=== PATIENT | female | born 1935 | race Caucasian/White ===

== ENCOUNTER 2017-08-17 17:22 | Emergency (ER) | payer MEDICARE, MEDICAID ==
[~2017-08-17] VITALS: Ht 5451.6 cm; Wt 67.7 kg
[2017-08-17 17:25] VITALS: BP 151/103
== END 2017-08-17 20:32 | disposition home or self-care (01) ==
LOC: ER 17:23
DX: S40.011A Contusion of right shoulder, initial encounter (principal); S80.02XA Contusion of left knee, initial encounter; S80.01XA Contusion of right knee, initial encounter; S50.02XA Contusion of left elbow, initial encounter; S50.01XA Contusion of right elbow, initial encounter; S00.83XA Contusion of other part of head, initial encounter; Z88.5 Allergy status to narcotic agent; W01.0XXA Fall on same level from slipping, tripping and stumbling without subsequent striking against object, initial encounter; Y93.89 Activity, other specified; Y92.89 Other specified places as the place of occurrence of the external cause; Y99.8 Other external cause status
CPT/HCPCS: 70450; 70486; 73030; 99284; A4565

== ENCOUNTER 2021-02-04 15:42 | Emergency (ER) | payer MEDICARE, MEDICAID ==
[~2021-02-04] VITALS: Ht 167.6 cm; Wt 90.0 kg
[2021-02-04 17:30] LABS: BASOPHILS % (AUTO) 0.5 % (0-1); EOSINOPHILS # (AUTO) 0.3 X10'3 (0-0.9); EOSINOPHILS % (AUTO) 3.2 % (0-6); HEMATOCRIT 44.3 % (35.0-45.0); HEMOGLOBIN 15.2 g/dl (12.0-16.0); LYMPHOCYTES % (AUTO) 24.5 % (21-51); MEAN CORPUSCULAR HEMOGLOBIN 31.8 PG (27.0-31.0); MEAN CORPUSCULAR HGB CONC 34.4 g/dL (33.0-36.5); MEAN CORPUSCULAR VOLUME 92.5 FL (78-98); MEAN PLATELET VOLUME 9.2 FL (7.4-10.4); MONOCYTES # (AUTO) 0.6 X10'3 (0-0.9); MONOCYTES % (AUTO) 6.9 % (2-12); NEUTROPHILS # (AUTO) 5.4 X10'3 (1.8-7.7); NEUTROPHILS % (AUTO) 64.9 % (42-75); PLATELET COUNT 234 X10'3 (140-440); RED BLOOD COUNT 4.79 X10'6 (4.20-5.60); RED CELL DISTRIBUTION WIDTH 13.7 % (11.5-14.5); WHITE BLOOD COUNT 8.4 X10'3 (4.5-11.0)
[2021-02-04 17:37] LABS: ALANINE AMINOTRANSFERASE 33 U/L (12-78); ALBUMIN 3.9 G/DL (3.4-5.0); ALBUMIN/GLOBULIN RATIO 1.2 (1.1-1.5); ALKALINE PHOSPHATASE 60 IU/L (46-116); ANION GAP 9 (8-16); ASPARTATE AMINO TRANSFERASE 30 U/L (10-37); BILIRUBIN,TOTAL 0.5 MG/DL (0.1-1.0); BLOOD UREA NITROGEN 19 MG/DL (7-18); BUN/CREATININE RATIO 17.3 (6.6-38.0); CALCIUM 8.8 MG/DL (8.5-10.1); CHLORIDE 109 MMOL/L (99-107); GLUCOSE 104 MG/DL (70-104); SODIUM 144 MMOL/L (135-145); TOTAL CARBON DIOXIDE 26.4 MMOL/L (24-32); TOTAL PROTEIN 7.1 G/DL (6.4-8.2); eGFR 47 ML/MIN
[2021-02-04] MEDS ORDERED: normal saline 1000ML IV soln IVB ONE (19:20)
--- NOTE | 2021-02-04 20:16 | NUR ---
PT WAS ROOMED AND ASSESSED BY ME. SHE NOTES THAT SHE DID NOT TAKE HER BP MEDS TODAY, CHRONIC SHOULDER PAIN THAT MAKES TAKING BP DIFFICULT (BETTER ON THE FOREARM), AND THAT SHE FEELS ANXIOUS WHEN AT THE HOSPITAL SHE DOES COMPLAIN OF DIZZINESS
[2021-02-04 20:48] VITALS: BP 173/106
== END 2021-02-04 20:57 | disposition home or self-care (01) ==
LOC: ER 15:42
DX: I10 Essential (primary) hypertension (principal); R42 Dizziness and giddiness; R51.9 Headache, unspecified; H53.8 Other visual disturbances; R53.83 Other fatigue; R07.89 Other chest pain; R06.02 Shortness of breath; R21 Rash and other nonspecific skin eruption; E03.9 Hypothyroidism, unspecified; Z88.8 Allergy status to other drugs, medicaments and biological substances; Z91.041 Radiographic dye allergy status
CPT/HCPCS: 36415; 70450; 71045; 80053; 83880; 84484; 85025; 93005; 99285

== ENCOUNTER 2021-03-12 11:09 | Emergency (ER) | payer MEDICARE, MEDICAID ==
[~2021-03-12] VITALS: Ht 167.6 cm; Wt 90.9 kg
[2021-03-12 11:32] VITALS: BP 149/71
[2021-03-12] MEDS ORDERED: CEPH-585 PO (11:38)
[2021-03-12] MEDS ORDERED: SULF1TAB49 PO (11:38)
== END 2021-03-12 12:03 | disposition home or self-care (01) ==
LOC: ER 11:10
DX: L03.311 Cellulitis of abdominal wall (principal); R10.84 Generalized abdominal pain; E03.9 Hypothyroidism, unspecified; Z88.5 Allergy status to narcotic agent; Z88.8 Allergy status to other drugs, medicaments and biological substances; Z79.2 Long term (current) use of antibiotics
CPT/HCPCS: 99283

== ENCOUNTER 2022-06-23 17:30 | Outpatient (CLI) | payer BC, MEDICARE ==
[~2022-06-23 17:30] MED LIST: BIMA2.5D LEFTEYE; BRIN10DR6 LEFTEYE; HYDR12.55 PO; LACT1CAP26 PO; LEVO75TA7 PO; OMEP20CA16 PO; VALS80TA32 PO
[2022-06-23 18:10] LABS: BASOPHILS # (AUTO) 0.1 X10'3 (0-0.2); BASOPHILS % (AUTO) 0.6 % (0-1); EOSINOPHILS # (AUTO) 0.4 X10'3 (0-0.9); EOSINOPHILS % (AUTO) 4.3 % (0-6); HEMATOCRIT 47.2 % (35.0-45.0); HEMOGLOBIN 16.2 g/dl (12.0-16.0); LYMPHOCYTES # (AUTO) 1.7 X10'3 (1.1-4.8); LYMPHOCYTES % (AUTO) 19.8 % (21-51); MEAN CORPUSCULAR HEMOGLOBIN 30.7 PG (27.0-31.0); MEAN CORPUSCULAR HGB CONC 34.2 g/dL (33.0-36.5); MEAN CORPUSCULAR VOLUME 89.7 FL (78-98); MEAN PLATELET VOLUME 9.9 FL (7.4-10.4); MONOCYTES # (AUTO) 0.6 X10'3 (0-0.9); MONOCYTES % (AUTO) 7.5 % (2-12); NEUTROPHILS # (AUTO) 5.8 X10'3 (1.8-7.7); NEUTROPHILS % (AUTO) 67.8 % (42-75); PLATELET COUNT 230 X10'3 (140-440); RED BLOOD COUNT 5.27 X10'6 (4.20-5.60); RED CELL DISTRIBUTION WIDTH 13.4 % (11.5-14.5); WHITE BLOOD COUNT 8.6 X10'3 (4.5-11.0)
[2022-06-23 18:16] LABS: ANION GAP 11 (8-16); BLOOD UREA NITROGEN 10 MG/DL (7-18); BUN/CREATININE RATIO 10.1 (6.6-38.0); CALCIUM 9.9 MG/DL (8.5-10.1); CHLORIDE 107 MMOL/L (99-107); CREATININE 0.99 MG/DL (0.40-0.90); GLUCOSE 102 MG/DL (70-104); POTASSIUM 3.2 MMOL/L (3.5-5.1); SODIUM 144 MMOL/L (135-145); TOTAL CARBON DIOXIDE 26.2 MMOL/L (24-32); eGFR 53 ML/MIN
== END 2022-06-23 23:59 | disposition home or self-care (01) ==
LOC: LAB SPEC 17:30
DX: F03.B0 Unspecified dementia, moderate, without behavioral disturbance, psychotic disturbance, mood disturbance, and anxiety (principal)
CPT/HCPCS: 36415; 80048; 85025

== ENCOUNTER 2022-07-12 12:19 | Inpatient (IN) | payer BC, MEDICAID ==
[~2022-07-12] VITALS: Ht 167.6 cm; Wt 79.1 kg
[2022-07-12] MEDS ORDERED: normal saline 1000ML IV soln IVB ONE (13:50)
[2022-07-12 14:10] LABS: BASOPHILS % (AUTO) 0.4 % (0-1); EOSINOPHILS # (AUTO) 0.1 X10'3 (0-0.9); EOSINOPHILS % (AUTO) 1.6 % (0-6); HEMATOCRIT 44.7 % (35.0-45.0); LYMPHOCYTES % (AUTO) 10.9 % (21-51); MEAN CORPUSCULAR HGB CONC 33.6 g/dL (33.0-36.5); MEAN CORPUSCULAR VOLUME 89.5 FL (78-98); MEAN PLATELET VOLUME 9.1 FL (7.4-10.4); MONOCYTES # (AUTO) 0.9 X10'3 (0-0.9); MONOCYTES % (AUTO) 9.8 % (2-12); NEUTROPHILS # (AUTO) 7.1 X10'3 (1.8-7.7); NEUTROPHILS % (AUTO) 77.3 % (42-75); PLATELET COUNT 193 X10'3 (140-440); RED CELL DISTRIBUTION WIDTH 14.5 % (11.5-14.5); WHITE BLOOD COUNT 9.2 X10'3 (4.5-11.0)
[2022-07-12 14:42] LABS: ALANINE AMINOTRANSFERASE 22 U/L (12-78); ALBUMIN 3.3 G/DL (3.4-5.0); ALBUMIN/GLOBULIN RATIO 1.1 (1.1-1.5); ALKALINE PHOSPHATASE 60 IU/L (46-116); ANION GAP 8 (8-16); ASPARTATE AMINO TRANSFERASE 23 U/L (10-37); BILIRUBIN,TOTAL 1.3 MG/DL (0.1-1.0); BLOOD UREA NITROGEN 9 MG/DL (7-18); BUN/CREATININE RATIO 12.5 (10.0-20.0); CALCIUM 9.3 MG/DL (8.5-10.1); CHLORIDE 108 MMOL/L (99-107); CREATININE 0.72 MG/DL (0.40-0.90); GLUCOSE 119 MG/DL (70-104); SODIUM 144 MMOL/L (135-145); TOTAL CARBON DIOXIDE 28.3 MMOL/L (24-32); TOTAL PROTEIN 6.3 G/DL (6.4-8.2); eGFR 77 ML/MIN
[2022-07-12 14:43] LABS: POTASSIUM 2.9 MMOL/L (3.5-5.1)
--- NOTE | 2022-07-12 14:53 | NUR ---
T/C from lab to inform us that pt has critical lab of 2.9 K+. Notified Dr. Gaviria @ [phone].
[2022-07-12] MEDS ORDERED: potassium Cl 20 mEq SR tablet PO ONE (15:05)
[2022-07-12 16:16] LABS: CLARITY,URINE SLIGHTLY CLOUDY (Clear); COLOR,URINE YELLOW (Yellow); GLUCOSE, URINE NEGATIVE (Neg); KETONES,URINE 15 mg/dl (Neg); LEUKOCYTE ESTERASE ,URINE NEGATIVE (Neg); NITRITES, URINE NEGATIVE (Neg); OCCULT BLOOD,URINE NEGATIVE (Neg); PH,URINE 6.5 (4.8-8.0); PROTEIN,URINE NEGATIVE (Neg); UROBILINOGEN,URINE 0.2 E.U/dL (0.2-1.0)
[2022-07-12 16:19] LABS: UA COLLECTION TYPE STRAIGHT CATH
[2022-07-12 16:23] LABS: RBC,URINE NONE SEEN /HPF (0-2); WBC,URINE 0-4 /HPF (0-4)
[2022-07-12 16:24] LABS: BACTERIA,URINE FEW /HPF (Neg); MUCUS STRANDS MODERATE /LPF (Neg); SQUAMOUS EPITHELIAL CELL,UR FEW /LPF (FEW)
[2022-07-12] MEDS ORDERED: POTA-192 PO (16:31)
[2022-07-12] MEDS ORDERED: normal saline 1000ml 1,000 ML IV ONE (17:20)
[2022-07-12] MEDS ORDERED: LORazepam 1 MG tablet PO ONE (17:20)
--- NOTE | 2022-07-12 17:56 | NUR ---
T/C from [facility] for an update. Let her know that PHILIPPE Iyer is planning to admit her.
[2022-07-12] MEDS ORDERED: potassium Cl 40MEQ/1/2NS 520ml 520 ML IV ONE (18:25)
[2022-07-12 19:34] LABS: CREATINE KINASE 206 U/L (26-192)
[2022-07-12] MEDS ORDERED: magnesium Cl slow-release 64mg tablet PO PRN (19:35)
[2022-07-12] MEDS ORDERED: ondansetron/PF 4mg/2ml inj IV PRN (19:35)
[2022-07-12] MEDS ORDERED: magnesium 4gm in 100ml NS 100 ML IV PRN (19:35)
[2022-07-12] MEDS ORDERED: acetaminophen 325mg tablet PO PRN (19:35)
[2022-07-12] MEDS ORDERED: PERFLUTREN PROTEIN-A MICROSPHR (Optison) 0.22 MG/ML 3ML VIAL IV ONE (19:35)
[2022-07-12] MEDS ORDERED: potassium Cl 40MEQ/1/2NS 520ml 520 ML IV PRN (19:35)
[2022-07-12] MEDS ORDERED: potassium Cl 20 mEq SR tablet PO PRN ×2 (19:35)
[2022-07-12] MEDS ORDERED: mag hydrox/Alum hydrox/simeth 30ml oral suspension PO PRN (19:35)
[2022-07-12] MEDS: K and/or MAG REPLACEMENT MC SCH (20:00)
--- NOTE | 2022-07-12 20:20 | NUR ---
PATIENT KEPT PULLING OUT IV'S CALLED THE HOSPITALIST DR. ESCOBAR VERBALIZED OVER PHONE TO DISCHARGE PATIENTS IV AND TO FEED PATIENT BY MOUTH
[2022-07-12] MEDS: prazosin 1mg capsule PO SCH (20:35)
[2022-07-12] MEDS: docusate sod 100mg capsule PO SCH (20:35)
[2022-07-12] MEDS: heparin, porcine 5000 units/ml vial SQ SCH (20:35)
--- NOTE | 2022-07-12 21:43 | NUR ---
PATIENT PLACED ON HOSPITAL BED VERY DIFFICULT TO RE DIRECT PATIENT DUE TO HALLUCINATIONS
[2022-07-13] VITALS (9 sets, daily range): BP systolic 117–191; BP diastolic 59–84
--- NOTE | 2022-07-13 00:30 | NUR ---
Patient in room CICU 2016. I have received report from CORN PICKER and had the opportunity to ask questions and assume patient care.
[2022-07-13 04:21] LABS: BASOPHILS % (AUTO) 0.3 % (0-1); HEMOGLOBIN 15.2 g/dl (12.0-16.0); RED CELL DISTRIBUTION WIDTH 14.6 % (11.5-14.5)
[2022-07-13 05:07] LABS: ALANINE AMINOTRANSFERASE 24 U/L (12-78); ALBUMIN 3.4 G/DL (3.4-5.0); ALBUMIN/GLOBULIN RATIO 1.2 (1.1-1.5); ALKALINE PHOSPHATASE 60 IU/L (46-116); ANION GAP 10 (8-16); ASPARTATE AMINO TRANSFERASE 35 U/L (10-37); BILIRUBIN,TOTAL 1.3 MG/DL (0.1-1.0); CALCIUM 9.8 MG/DL (8.5-10.1); CHLORIDE 112 MMOL/L (99-107); CREATININE 0.73 MG/DL (0.40-0.90); GLUCOSE 106 MG/DL (70-104); POTASSIUM 4.3 MMOL/L (3.5-5.1); SODIUM 145 MMOL/L (135-145); TOTAL CARBON DIOXIDE 23.3 MMOL/L (24-32); TOTAL PROTEIN 6.3 G/DL (6.4-8.2); eGFR 76 ML/MIN
[2022-07-13 05:08] LABS: BLOOD UREA NITROGEN 11 MG/DL (7-18); BUN/CREATININE RATIO 15.1 (10.0-20.0)
[2022-07-13 05:34] LABS: WHITE BLOOD COUNT 9.1 X10'3 (4.5-11.0)
[2022-07-13 05:35] LABS: HEMATOCRIT 45.1 % (35.0-45.0); MEAN CORPUSCULAR HEMOGLOBIN 30.6 PG (27.0-31.0); MEAN CORPUSCULAR VOLUME 90.7 FL (78-98); RED BLOOD COUNT 4.97 X10'6 (4.20-5.60)
[2022-07-13 05:36] LABS: LYMPHOCYTES % (AUTO) 20.9 % (21-51); MEAN CORPUSCULAR HGB CONC 33.7 g/dL (33.0-36.5); MEAN PLATELET VOLUME 9.3 FL (7.4-10.4); PLATELET COUNT 156 X10'3 (140-440)
[2022-07-13 05:37] LABS: EOSINOPHILS % (AUTO) 2.8 % (0-6); LYMPHOCYTES # (AUTO) 1.9 X10'3 (1.1-4.8); MONOCYTES % (AUTO) 9.7 % (2-12); NEUTROPHILS # (AUTO) 6.1 X10'3 (1.8-7.7)
[2022-07-13 05:38] LABS: EOSINOPHILS # (AUTO) 0.3 X10'3 (0-0.9); MONOCYTES # (AUTO) 0.9 X10'3 (0-0.9)
[2022-07-13 05:41] LABS: NEUTROPHILS % (AUTO) 66.3 % (42-75)
--- NOTE | 2022-07-13 06:27 | NUR ---
Problems reprioritized. Patient report given, questions answered & plan of care reviewed with Felicity TINSLEY.
--- NOTE | 2022-07-13 06:30 | NUR ---
Patient in room CICU 2016. I have received report from ALVINA Parr and had the opportunity to ask questions and assume patient care.
[2022-07-13] MEDS: K and/or MAG REPLACEMENT MC SCH ×2 (08:00→20:00)
[2022-07-13] MEDS: docusate sod 100mg capsule PO SCH ×2 (08:24→20:00)
[2022-07-13] MEDS: losartan 50mg tablet PO SCH (08:25)
[2022-07-13] MEDS: heparin, porcine 5000 units/ml vial SQ SCH ×2 (08:25→20:00)
[2022-07-13] MEDS: prazosin 1mg capsule PO SCH ×2 (10:26→20:00)
[2022-07-13] MEDS ORDERED: cloNIDine 0.1 mg tablet PO PRN (11:55)
[2022-07-13] MEDS ORDERED: hydrALAZINE 20mg/ml inj. IV PRN (11:55)
--- NOTE | 2022-07-13 12:00 | NUR ---
Dr Fleming notified of BP 179/84. Orders received.
[2022-07-13] MEDS: amLODIPine 5mg tablet PO SCH (12:19)
--- NOTE | 2022-07-13 18:30 | NUR ---
Problems reprioritized. Patient report given, questions answered & plan of care reviewed with ALVINA Barton.
[2022-07-14] VITALS: BP 135/62
[2022-07-14 01:53] LABS: BASOPHILS # (AUTO) 0.1 X10'3 (0-0.2); BASOPHILS % (AUTO) 0.8 % (0-1); EOSINOPHILS # (AUTO) 0.4 X10'3 (0-0.9); EOSINOPHILS % (AUTO) 5.7 % (0-6); HEMATOCRIT 39.5 % (35.0-45.0); HEMOGLOBIN 13.5 g/dl (12.0-16.0); LYMPHOCYTES # (AUTO) 1.7 X10'3 (1.1-4.8); LYMPHOCYTES % (AUTO) 23.5 % (21-51); MEAN CORPUSCULAR HEMOGLOBIN 30.8 PG (27.0-31.0); MEAN CORPUSCULAR HGB CONC 34.3 g/dL (33.0-36.5); MEAN CORPUSCULAR VOLUME 89.9 FL (78-98); MEAN PLATELET VOLUME 9.5 FL (7.4-10.4); MONOCYTES # (AUTO) 0.6 X10'3 (0-0.9); MONOCYTES % (AUTO) 8.6 % (2-12); NEUTROPHILS # (AUTO) 4.5 X10'3 (1.8-7.7); NEUTROPHILS % (AUTO) 61.4 % (42-75); PLATELET COUNT 158 X10'3 (140-440); RED BLOOD COUNT 4.39 X10'6 (4.20-5.60); RED CELL DISTRIBUTION WIDTH 14.5 % (11.5-14.5); WHITE BLOOD COUNT 7.4 X10'3 (4.5-11.0)
[2022-07-14 02:06] LABS: ALANINE AMINOTRANSFERASE 20 U/L (12-78); ALBUMIN 2.8 G/DL (3.4-5.0); ALKALINE PHOSPHATASE 51 IU/L (46-116); ANION GAP 8 (8-16); ASPARTATE AMINO TRANSFERASE 28 U/L (10-37); BLOOD UREA NITROGEN 11 MG/DL (7-18); BUN/CREATININE RATIO 15.7 (10.0-20.0); CALCIUM 9.1 MG/DL (8.5-10.1); CHLORIDE 109 MMOL/L (99-107); GLUCOSE 99 MG/DL (70-104); MAGNESIUM 1.9 MG/DL (1.5-2.4); POTASSIUM 3.5 MMOL/L (3.5-5.1); SODIUM 141 MMOL/L (135-145); TOTAL CARBON DIOXIDE 24.5 MMOL/L (24-32); TOTAL PROTEIN 5.5 G/DL (6.4-8.2); eGFR 79 ML/MIN
[2022-07-14 04:00] VITALS: BP 167/87
--- NOTE | 2022-07-14 06:25 | NUR ---
Report called to receiving nurse for room 3024Q. Transferred via bed. Special Issues communicated to receiving nurse.
[2022-07-14 07:00] VITALS: BP 161/82
--- NOTE | 2022-07-14 07:14 | NUR ---
Pt transferred to room 3024B with all belongings, at 0700.
--- NOTE | 2022-07-14 07:15 | NUR ---
Pt arrived on unit 07. Patient in room PCU 3024. I have received report from Miguel TINSLEY and had the opportunity to ask questions and assume patient care. Pt asleep but arouseable to voice. Pt denies pain. Pt oriented to name. Pt slightly agitated with being in hospital asb asking to go home and stating to nurse " are you almost done." Reoriented patient and patient redirectable. Addendum: 07/14/22 at 1226 by James Groves LVN Amended: Links added.
[2022-07-14] MEDS ORDERED: losartan 50mg tablet PO SCH (08:00)
[2022-07-14] MEDS: K and/or MAG REPLACEMENT MC SCH ×2 (08:00→20:00)
[2022-07-14] MEDS: heparin, porcine 5000 units/ml vial SQ SCH ×2 (08:00→19:52)
[2022-07-14] MEDS: docusate sod 100mg capsule PO SCH ×2 (08:22→19:52)
[2022-07-14] MEDS: prazosin 1mg capsule PO SCH ×2 (08:22→19:58)
[2022-07-14] MEDS: levoTHYROXINE 75mcg tablet PO SCH (08:22)
[2022-07-14] MEDS: losartan 50mg tablet PO SCH (08:23)
[2022-07-14] MEDS: amLODIPine 5mg tablet PO SCH (08:23)
[2022-07-14] MEDS: pantoprazole 40mg Tablet.DR PO SCH (08:23)
[2022-07-14 11:00] VITALS: BP 154/80
[2022-07-14 15:00] VITALS: BP 176/82
--- NOTE | 2022-07-14 17:18 | NUR ---
Pt becoming agitated with information writer during vital signs. Unable to safely obtain sitting/standing v/s. Pt is a fall risk due to hx of fall risk including this admission admitting dx fall. Addendum: 07/14/22 at 1719 by James Groves LVN Amended: Links added.
--- NOTE | 2022-07-14 17:24 | NUR ---
OPTOMECHANICAL ENGINEER documentation: I have reviewed and agree with all interventions, assessments performed and documented by POORNIMA PARKER LVN.
[2022-07-14 20:00] VITALS: BP 157/77
--- NOTE | 2022-07-14 20:00 | NUR ---
Pt resistive to V/S Addendum: 07/14/22 at 2233 by James Groves LVN Amended: Links added.
--- NOTE | 2022-07-14 20:54 | NUR ---
Paged Page Sent PAGER ID: [phone] MESSAGE: [id number]- Kalli. Requesting medication for insomnia. James Groves LVN
--- NOTE | 2022-07-14 22:19 | NUR ---
Attempted to do physical assessment and patient pushed me away and would not allow me to assess her at all. I am unable to agree or disagree with James STREETER's assessment.
--- NOTE | 2022-07-14 22:32 | NUR ---
Pt resistive to care. Pt refuses complete orthostatic v/s Addendum: 07/14/22 at 2232 by James Groves LVN Amended: Links added.
--- NOTE | 2022-07-14 22:37 | NUR ---
Pt refused lung assessment. No audible adventitious breath sounds. Addendum: 07/14/22 at 2239 by James Groves LVN Amended: Links added.
--- NOTE | 2022-07-14 22:54 | NUR ---
Pt refused V/S Addendum: 07/14/22 at 2254 by James Groves LVN Amended: Links added.
[2022-07-15] VITALS (8 sets, daily range): BP systolic 116–158; BP diastolic 53–99
--- NOTE | 2022-07-15 06:37 | NUR ---
Patient in room PCU 3027. I have received report from Rachel TINSLEY and had the opportunity to ask questions and assume patient care.
--- NOTE | 2022-07-15 06:48 | NUR ---
Patient in room PCU 7381Z. I have received report from James STREETER and had the opportunity to ask questions and assume patient care. Pt is laying high fowlers in bed and resting comfortably. Pt requesting help to go to restroom. Please see interventions. Pt on RA, no s/s of distress. Pt declines c/o pain at this time. BLL, call light within reach, frequently used items in reach, frequent rounding, chaplain resident socks on. TAB alarm on, alarm audiable. BED alarm on, alarm audiable, in siget og nurses station. Will continue to monitor.
[2022-07-15] MEDS: levoTHYROXINE 75mcg tablet PO SCH (07:00)
--- NOTE | 2022-07-15 07:02 | NUR ---
Pt declined 0600 VS. No s/s of hemodynamic instability or fever. Will continue to monitor.
[2022-07-15] MEDS: K and/or MAG REPLACEMENT MC SCH ×2 (08:00→20:00)
[2022-07-15] MEDS: losartan 50mg tablet PO SCH (08:13)
[2022-07-15] MEDS: pantoprazole 40mg Tablet.DR PO SCH (08:13)
[2022-07-15] MEDS: docusate sod 100mg capsule PO SCH ×2 (08:13→20:47)
[2022-07-15] MEDS: amLODIPine 5mg tablet PO SCH (08:13)
[2022-07-15] MEDS: prazosin 1mg capsule PO SCH ×2 (08:13→20:47)
[2022-07-15] MEDS: heparin, porcine 5000 units/ml vial SQ SCH ×2 (08:15→20:47)
[2022-07-15 08:43] LABS: BASOPHILS % (AUTO) 0.6 % (0-1); EOSINOPHILS # (AUTO) 0.4 X10'3 (0-0.9); EOSINOPHILS % (AUTO) 6.3 % (0-6); HEMOGLOBIN 14.7 g/dl (12.0-16.0); LYMPHOCYTES # (AUTO) 1.2 X10'3 (1.1-4.8); LYMPHOCYTES % (AUTO) 18.5 % (21-51); MEAN CORPUSCULAR HEMOGLOBIN 30.1 PG (27.0-31.0); MEAN CORPUSCULAR HGB CONC 33.4 g/dL (33.0-36.5); MEAN PLATELET VOLUME 9.8 FL (7.4-10.4); MONOCYTES # (AUTO) 0.6 X10'3 (0-0.9); MONOCYTES % (AUTO) 8.5 % (2-12); NEUTROPHILS # (AUTO) 4.3 X10'3 (1.8-7.7); NEUTROPHILS % (AUTO) 66.1 % (42-75); PLATELET COUNT 188 X10'3 (140-440); RED BLOOD COUNT 4.88 X10'6 (4.20-5.60); RED CELL DISTRIBUTION WIDTH 14.7 % (11.5-14.5); WHITE BLOOD COUNT 6.5 X10'3 (4.5-11.0)
[2022-07-15 09:17] LABS: ALANINE AMINOTRANSFERASE 27 U/L (12-78); ALBUMIN 3.1 G/DL (3.4-5.0); ALBUMIN/GLOBULIN RATIO 1.1 (1.1-1.5); ALKALINE PHOSPHATASE 55 IU/L (46-116); ANION GAP 9 (8-16); ASPARTATE AMINO TRANSFERASE 30 U/L (10-37); BILIRUBIN,TOTAL 0.8 MG/DL (0.1-1.0); BLOOD UREA NITROGEN 12 MG/DL (7-18); BUN/CREATININE RATIO 14.3 (10.0-20.0); CALCIUM 9.3 MG/DL (8.5-10.1); CHLORIDE 108 MMOL/L (99-107); CREATININE 0.84 MG/DL (0.40-0.90); GLUCOSE 100 MG/DL (70-104); MAGNESIUM 1.8 MG/DL (1.5-2.4); POTASSIUM 3.5 MMOL/L (3.5-5.1); SODIUM 142 MMOL/L (135-145); TOTAL CARBON DIOXIDE 25.4 MMOL/L (24-32); eGFR 64 ML/MIN
--- NOTE | 2022-07-15 11:05 | NUR ---
PAGER ID: [phone] MESSAGE: Carly Mahan 3027 A: May she have a one time order for PO Ativan for her MRI. Pt does not like to lay flat. -Rachel ext [phone]
--- NOTE | 2022-07-15 11:47 | NUR ---
PAGER ID: [phone] MESSAGE: Carly Mahan 5823T: Need a 1 time order for PO Ativan for MRI scan, please?. -Rachel LOUISE [phone] Addendum: 07/15/22 at 1616 by Rachel Hassan RN New orders imputed please see eMAR
[2022-07-15] MEDS ORDERED: LORazepam 1 MG tablet PO ONE (11:50)
--- NOTE | 2022-07-15 16:15 | NUR ---
PAGER ID: [phone] MESSAGE: Carly Mahan [id number]: May this Pt have an order for pain medicine? Pt only has Tylenol PRN for fever. _Rachel EXT [phone]
--- NOTE | 2022-07-15 16:49 | NUR ---
PAGER ID: [phone] MESSAGE: Carly Mahan 3024 A: May this Pt have a Tylenol order for pain? -Rachel EXT [phone]
[2022-07-15] MEDS ORDERED: HYDROcodone/acetaminophen 10/325mg tab PO PRN (16:50)
[2022-07-15] MEDS ORDERED: acetaminophen 325mg tablet PO PRN (16:50)
--- NOTE | 2022-07-15 20:30 | NUR ---
1999 orthostatic vitals were inconclusive due to pt agitation and pt not willing to participate.
[2022-07-16 02:00] VITALS: BP 157/67
[2022-07-16 05:36] LABS: ALANINE AMINOTRANSFERASE 29 U/L (12-78); ALBUMIN 3.2 G/DL (3.4-5.0); ALBUMIN/GLOBULIN RATIO 1.1 (1.1-1.5); ALKALINE PHOSPHATASE 56 IU/L (46-116); ANION GAP 9 (8-16); ASPARTATE AMINO TRANSFERASE 36 U/L (10-37); BILIRUBIN,TOTAL 0.8 MG/DL (0.1-1.0); BLOOD UREA NITROGEN 11 MG/DL (7-18); BUN/CREATININE RATIO 13.6 (10.0-20.0); CALCIUM 9.9 MG/DL (8.5-10.1); CHLORIDE 108 MMOL/L (99-107); CREATININE 0.81 MG/DL (0.40-0.90); GLUCOSE 95 MG/DL (70-104); MAGNESIUM 1.9 MG/DL (1.5-2.4); POTASSIUM 3.5 MMOL/L (3.5-5.1); SODIUM 143 MMOL/L (135-145); TOTAL CARBON DIOXIDE 26.5 MMOL/L (24-32); TOTAL PROTEIN 6.2 G/DL (6.4-8.2); eGFR 67 ML/MIN
[2022-07-16 05:42] LABS: BASOPHILS % (AUTO) 0.6 % (0-1); EOSINOPHILS # (AUTO) 0.3 X10'3 (0-0.9); EOSINOPHILS % (AUTO) 4.9 % (0-6); HEMATOCRIT 44.2 % (35.0-45.0); LYMPHOCYTES # (AUTO) 1.8 X10'3 (1.1-4.8); LYMPHOCYTES % (AUTO) 26.1 % (21-51); MEAN CORPUSCULAR HEMOGLOBIN 30.5 PG (27.0-31.0); MEAN CORPUSCULAR VOLUME 89.7 FL (78-98); MEAN PLATELET VOLUME 10.1 FL (7.4-10.4); MONOCYTES # (AUTO) 0.7 X10'3 (0-0.9); MONOCYTES % (AUTO) 10.3 % (2-12); NEUTROPHILS # (AUTO) 3.9 X10'3 (1.8-7.7); NEUTROPHILS % (AUTO) 58.1 % (42-75); PLATELET COUNT 173 X10'3 (140-440); RED BLOOD COUNT 4.93 X10'6 (4.20-5.60); RED CELL DISTRIBUTION WIDTH 14.3 % (11.5-14.5); WHITE BLOOD COUNT 6.7 X10'3 (4.5-11.0)
[2022-07-16 06:00] VITALS: BP 189/68
--- NOTE | 2022-07-16 06:34 | NUR ---
Problems reprioritized. Patient report given, questions answered & plan of care reviewed with Rachel TINSLEY.
--- NOTE | 2022-07-16 06:50 | NUR ---
Patient in room PCU 5433U. I have received report from B and had the opportunity to ask questions and assume patient care. Pt is laying low fowlers in bed, and resting comfortably. Pt on RA. No s/s of distress. Bed alarm on, alarm audiable. TAB alarm on, alarm audiable. BLL, call light wihtin reach, frequently used items in reach, frequent rounidng, agriculture specialist socks on. Will continue to monitor.
--- NOTE | 2022-07-16 07:07 | NUR ---
This RN assessed this pt. and it aligns w/the SUPERVISOR ELECTRIC MOTOR TESTING's physical assessment. I agree w/the medication admin f/this pt.
[2022-07-16] MEDS: heparin, porcine 5000 units/ml vial SQ SCH ×2 (07:46→20:10)
[2022-07-16] MEDS: levoTHYROXINE 25mcg tablet PO SCH (07:46)
[2022-07-16] MEDS: losartan 50mg tablet PO SCH (07:46)
[2022-07-16] MEDS: prazosin 1mg capsule PO SCH ×2 (07:46→20:11)
[2022-07-16] MEDS: pantoprazole 40mg Tablet.DR PO SCH (07:47)
[2022-07-16] MEDS: amLODIPine 5mg tablet PO SCH (07:47)
[2022-07-16 08:00] VITALS: BP_SYST 126; BP_SYST 170; BP_SYST 175; BP_SYST 189; BP_DIAS 55; BP_DIAS 61; BP_DIAS 68; BP_DIAS 71
[2022-07-16] MEDS: docusate sod 100mg capsule PO SCH ×2 (08:27→20:11)
[2022-07-16] MEDS: K and/or MAG REPLACEMENT MC SCH ×2 (08:41→20:00)
[2022-07-16 12:00] VITALS: BP 170/55
--- NOTE | 2022-07-16 12:43 | NUR ---
Initial: Pt admit s/p fall. Per EMR pt A/O x 1, confused, and resistive to care. Currently on a heart healthy diet and initially eating poorly, documented with 25% PO intake of one out of three meals on 07/13 however up to average 65% PO intake since 07/14 meeting 95% estimated energy needs and 100% estimated protein needs. Per EMR LBM 07/10 though with no GI symptoms. Pt receiving routine bowel care and with PRN bowel care available that hasn't been given per EMR. D/w dietary to send prunes and prune juice with next meal to assist with bowel regularity. Will continue to follow and monitor need for further nutrition intervention. Recommendations: 1) Liberalize to regular diet in view of geriatric age 2) Continue assisting with meals 3) Routine bowel care; utilize PRN bowel care if pt truly without a BM x 6 days 4) Scaled weight this admit; subsequent weekly scaled weights Addendum: 07/16/22 at [address] Amended: Links added.
[2022-07-16] MEDS: magnesium hydroxide 30ml (MOM) UD suspension PO PRN (13:16)
[2022-07-16] MEDS ORDERED: amLODIPine 5mg tablet PO ONE (13:25)
[2022-07-16 15:00] VITALS: BP 157/58
--- NOTE | 2022-07-16 18:35 | NUR ---
Problems reprioritized. Patient report given, questions answered & plan of care reviewed with Karlee STREETER.
--- NOTE | 2022-07-16 20:00 | NUR ---
pt is combative every time we try vitals. orthostatics not done
[2022-07-17 06:00] VITALS: BP 103/54
--- NOTE | 2022-07-17 06:00 | NUR ---
This RN assessed and agrees w/the OUTREACH AND EDUCATION SOCIAL WORKER's physical assessment f/this pt.. All medications were reviewed w/the OUTREACH AND EDUCATION SOCIAL WORKER prior to admin.
--- NOTE | 2022-07-17 06:31 | NUR ---
Patient in room PCU 2650N. I have received report from Karlee STREETER and had the opportunity to ask questions and assume patient care. Pt is laying low fowlers in bed, and is restless pulling off gown and bed covers. Toileting offered, personal needs adresses. Pt on RA. No s/s of distress, no c/o pain at this time. TAB alarm on, alarm audiable. Bed alarm on, alarm audiable. Pt in sight of nurses station. BLL, call light within reach, frequently used items in reach, freqeunt rounding, outside medical sales representative socks on, three bed rails up. Will continue to monitor.
[2022-07-17] MEDS: prazosin 1mg capsule PO SCH ×2 (07:14→22:13)
[2022-07-17] MEDS: magnesium hydroxide 30ml (MOM) UD suspension PO PRN (07:14)
[2022-07-17] MEDS: losartan 50mg tablet PO SCH (07:15)
[2022-07-17] MEDS: pantoprazole 40mg Tablet.DR PO SCH (07:15)
[2022-07-17] MEDS: docusate sod 100mg capsule PO SCH ×2 (07:15→20:00)
[2022-07-17] MEDS: amLODIPine 5mg tablet PO SCH (07:16)
[2022-07-17] MEDS: levoTHYROXINE 25mcg tablet PO SCH (07:16)
[2022-07-17] MEDS: heparin, porcine 5000 units/ml vial SQ SCH ×2 (07:17→22:14)
[2022-07-17 07:58] LABS: BASOPHILS % (AUTO) 0.7 % (0-1); EOSINOPHILS # (AUTO) 0.4 X10'3 (0-0.9); EOSINOPHILS % (AUTO) 5.9 % (0-6); HEMATOCRIT 46.4 % (35.0-45.0); HEMOGLOBIN 15.9 g/dl (12.0-16.0); LYMPHOCYTES # (AUTO) 1.9 X10'3 (1.1-4.8); LYMPHOCYTES % (AUTO) 28.3 % (21-51); MEAN CORPUSCULAR HEMOGLOBIN 30.6 PG (27.0-31.0); MEAN CORPUSCULAR HGB CONC 34.2 g/dL (33.0-36.5); MEAN CORPUSCULAR VOLUME 89.6 FL (78-98); MEAN PLATELET VOLUME 10.1 FL (7.4-10.4); MONOCYTES # (AUTO) 0.6 X10'3 (0-0.9); MONOCYTES % (AUTO) 9.7 % (2-12); NEUTROPHILS # (AUTO) 3.7 X10'3 (1.8-7.7); NEUTROPHILS % (AUTO) 55.4 % (42-75); PLATELET COUNT 198 X10'3 (140-440); RED BLOOD COUNT 5.17 X10'6 (4.20-5.60); RED CELL DISTRIBUTION WIDTH 14.6 % (11.5-14.5); WHITE BLOOD COUNT 6.6 X10'3 (4.5-11.0)
[2022-07-17 08:00] VITALS: BP_SYST 117; BP_SYST 127; BP_SYST 165; BP_DIAS 49; BP_DIAS 57; BP_DIAS 71
[2022-07-17] MEDS: K and/or MAG REPLACEMENT MC SCH ×2 (08:00→20:00)
[2022-07-17 08:27] LABS: ALANINE AMINOTRANSFERASE 33 U/L (12-78); ALBUMIN 3.4 G/DL (3.4-5.0); ALBUMIN/GLOBULIN RATIO 1.1 (1.1-1.5); ALKALINE PHOSPHATASE 60 IU/L (46-116); ANION GAP 9 (8-16); ASPARTATE AMINO TRANSFERASE 39 U/L (10-37); BILIRUBIN,TOTAL 0.8 MG/DL (0.1-1.0); BLOOD UREA NITROGEN 11 MG/DL (7-18); BUN/CREATININE RATIO 13.4 (10.0-20.0); CALCIUM 9.8 MG/DL (8.5-10.1); CHLORIDE 107 MMOL/L (99-107); CREATININE 0.82 MG/DL (0.40-0.90); GLUCOSE 96 MG/DL (70-104); POTASSIUM 3.5 MMOL/L (3.5-5.1); SODIUM 142 MMOL/L (135-145); TOTAL CARBON DIOXIDE 26.3 MMOL/L (24-32); TOTAL PROTEIN 6.5 G/DL (6.4-8.2); eGFR 66 ML/MIN
[2022-07-17] MEDS ORDERED: fludrocortisone acetate 0.1mg tablet PO SCH (08:30)
[2022-07-17 11:00] VITALS: BP 135/64
[2022-07-17 15:00] VITALS: BP 132/81
[2022-07-17 18:00] VITALS: BP 160/52
--- NOTE | 2022-07-17 18:00 | NUR ---
Patient in room PCU 3027. I have received report from Rachel TINSLEY and had the opportunity to ask questions and assume patient care.
--- NOTE | 2022-07-17 18:32 | NUR ---
Problems reprioritized. Patient report given, questions answered & plan of care reviewed with Karen TINSLEY BSN.
[2022-07-17 22:00] VITALS: BP 149/61
[2022-07-18 02:00] VITALS: BP 146/68
[2022-07-18 06:00] VITALS: BP 130/74
--- NOTE | 2022-07-18 06:54 | NUR ---
Problems reprioritized. Patient report given, questions answered & plan of care reviewed with Emmanuelle TINSLEY.
--- NOTE | 2022-07-18 06:57 | NUR ---
Patient in room PCU 3027. I have received report from Karen TINSLEY and had the opportunity to ask questions and assume patient care.
[2022-07-18] MEDS: K and/or MAG REPLACEMENT MC SCH ×2 (08:00→20:00)
[2022-07-18] MEDS: prazosin 1mg capsule PO SCH ×2 (09:54→21:19)
[2022-07-18] MEDS: amLODIPine 5mg tablet PO SCH (09:54)
[2022-07-18] MEDS: levoTHYROXINE 25mcg tablet PO SCH (09:54)
[2022-07-18] MEDS: pantoprazole 40mg Tablet.DR PO SCH (09:55)
[2022-07-18] MEDS: fludrocortisone acetate 0.1mg tablet PO SCH (09:56)
[2022-07-18] MEDS: heparin, porcine 5000 units/ml vial SQ SCH ×2 (09:56→21:19)
[2022-07-18] MEDS: losartan 50mg tablet PO SCH (09:57)
[2022-07-18] MEDS: docusate sod 100mg capsule PO SCH ×2 (09:58→21:19)
[2022-07-18 11:00] VITALS: BP 162/62
--- NOTE | 2022-07-18 13:51 | NUR ---
I was not able to get orthostatic vitals. I advised
[2022-07-18 15:36] VITALS: BP 143/56
--- NOTE | 2022-07-18 17:38 | NUR ---
dr woo came to bedside to see if he could help me get orthostatic vitals. I was able to get laying down but not sitting or standing patient was not able to follow commands.
[2022-07-18 18:00] VITALS: BP 140/57
[2022-07-18 23:00] VITALS: BP 159/43
[2022-07-19 06:00] VITALS: BP 143/59
--- NOTE | 2022-07-19 06:00 | NUR ---
Patient in room PCU 3027. I have received report from Tyron TINSLEY and had the opportunity to ask questions and assume patient care.
--- NOTE | 2022-07-19 06:36 | NUR ---
Problems reprioritized. Patient report given, questions answered & plan of care reviewed with Emmanuelle TINSLEY.
[2022-07-19 11:00] VITALS: BP 100/70
[2022-07-19] MEDS: prazosin 1mg capsule PO SCH ×2 (12:32→19:50)
[2022-07-19] MEDS: heparin, porcine 5000 units/ml vial SQ SCH ×2 (12:33→19:51)
[2022-07-19] MEDS: levoTHYROXINE 25mcg tablet PO SCH (12:33)
[2022-07-19] MEDS: fludrocortisone acetate 0.1mg tablet PO SCH (12:33)
[2022-07-19] MEDS: losartan 50mg tablet PO SCH (12:34)
[2022-07-19] MEDS: docusate sod 100mg capsule PO SCH ×2 (12:34→19:50)
[2022-07-19] MEDS: pantoprazole 40mg Tablet.DR PO SCH (12:35)
[2022-07-19] MEDS: amLODIPine 5mg tablet PO SCH (12:36)
--- NOTE | 2022-07-19 13:23 | NUR ---
PAGE TO ASSESSMENT CLINICIAN ON BEHALF OF FAMILY [id number] Amaury. FAMILY REQUESTING PEDIATRIC PHYSICIAN AT BEDSIDE. PLEASE CALL 1975 IF NOT ABLE TO COME UP RIGHT NOW
[2022-07-19 15:00] VITALS: BP 135/43
--- NOTE | 2022-07-19 17:13 | NUR ---
I tried several times this am to wake patient up to eat breakfast and take pills. patient would state for me to leave her the hell alone. PT was able to work with patient and put patient in the chair. patients daughter came to bedside with hira and spoke with foster care social worker. patient seemed to be more cheerful when daughter was at bedside. patient did take all her am meds for me.
[2022-07-19 18:00] VITALS: BP 130/80
[2022-07-19] MEDS: K and/or MAG REPLACEMENT MC SCH ×2 (18:14→19:03)
[2022-07-19] MEDS: zolpidem 5mg tablet PO PRN (19:51)
[2022-07-19 22:00] VITALS: BP 149/63
--- NOTE | 2022-07-20 02:34 | NUR ---
Patient refused 0200am VS. Patient medsurg- not on tele, VS have been stable.
--- NOTE | 2022-07-20 06:13 | NUR ---
Problems reprioritized. Patient report given, questions answered & plan of care reviewed with SYL Erickson.
--- NOTE | 2022-07-20 06:45 | NUR ---
Patient in room PCU 3027. I have received report from Jessica TINSLEY and had the opportunity to ask questions and assume patient care.
--- NOTE | 2022-07-20 07:00 | NUR ---
Patient refusing VS and care.
[2022-07-20] MEDS: K and/or MAG REPLACEMENT MC SCH ×2 (08:00→18:31)
[2022-07-20 10:30] VITALS: BP 144/80
[2022-07-20] MEDS: levoTHYROXINE 25mcg tablet PO SCH (10:42)
[2022-07-20] MEDS: losartan 50mg tablet PO SCH (10:46)
[2022-07-20] MEDS: heparin, porcine 5000 units/ml vial SQ SCH ×2 (10:47→19:42)
[2022-07-20] MEDS: pantoprazole 40mg Tablet.DR PO SCH (10:48)
[2022-07-20] MEDS: fludrocortisone acetate 0.1mg tablet PO SCH (10:48)
[2022-07-20] MEDS: docusate sod 100mg capsule PO SCH ×2 (10:48→19:43)
[2022-07-20] MEDS: prazosin 1mg capsule PO SCH ×2 (10:48→19:43)
[2022-07-20] MEDS: amLODIPine 5mg tablet PO SCH (10:49)
--- NOTE | 2022-07-20 11:39 | NUR ---
Paged SS per CM request.
--- NOTE | 2022-07-20 13:06 | NUR ---
I AGREE WITH SYL GASTELUM ASSESSMENT EXCEPT WHERE I CHARTED MY DIFFERENCES.
--- NOTE | 2022-07-20 16:46 | NUR ---
Patient refusing VS to be taken
[2022-07-20 18:00] VITALS: BP 139/59
--- NOTE | 2022-07-20 18:15 | NUR ---
Problems reprioritized. Patient report given, questions answered & plan of care reviewed with Jessica TINSLEY.
[2022-07-20] MEDS: zolpidem 5mg tablet PO PRN (19:43)
[2022-07-20 22:00] VITALS: BP 143/63
--- NOTE | 2022-07-21 06:41 | NUR ---
Problems reprioritized. Patient report given, questions answered & plan of care reviewed with ALVINA Bueno.
[2022-07-21 07:00] VITALS: BP 165/75
[2022-07-21] MEDS: K and/or MAG REPLACEMENT MC SCH ×2 (08:00→20:00)
[2022-07-21] MEDS: heparin, porcine 5000 units/ml vial SQ SCH ×2 (10:43→20:00)
[2022-07-21] MEDS: amLODIPine 5mg tablet PO SCH (10:43)
[2022-07-21] MEDS: docusate sod 100mg capsule PO SCH ×2 (10:43→20:00)
[2022-07-21] MEDS: pantoprazole 40mg Tablet.DR PO SCH (10:43)
[2022-07-21] MEDS: levoTHYROXINE 25mcg tablet PO SCH (10:44)
[2022-07-21] MEDS: losartan 50mg tablet PO SCH (10:44)
[2022-07-21] MEDS: fludrocortisone acetate 0.1mg tablet PO SCH (10:44)
[2022-07-21] MEDS: prazosin 1mg capsule PO SCH ×2 (10:44→20:00)
[2022-07-21 11:00] VITALS: BP 158/74
--- NOTE | 2022-07-21 11:19 | NUR ---
F/u 07/21: Pt PO regressing and remains poor mostly 0-25% vs refusing meals 6 of 8 days this admit not meeting needs. Remains AOx1/confused w/ dementia hx per EMR. RD d/w RN poor intake, per RN still receiving assistance at meals no need for texture modification but likely to drink ONS. Per RN discussion w/ pt, pt amenable to chocolate Ensures. ALLI paged MD regarding liberalizing to regular diet from current heart healthy and Chocolate Ensure Enlive TIDWM ONS pending physician verification in EMR. Given 6 days poor intake and mild weakness pt meets minimum non-severe malnutrition criteria; MD notified. LBM 07/19 receiving routine colace. Will monitor for further nutrition intervention needs this admit. Recommendations: 1) Liberalize to regular diet in view of geriatric age and poor PO trends; continue assisting with meals 2) Chocolate Ensure Enlive TIDWM; pending physician approval in EMR 3) Encourage PO meals/ONS 4) Consider routine MVI supplementation given malnutrition status 5) Routine bowel care 6) Scaled weight this admit; subsequent weekly scaled weights Addendum: 07/21/22 at [address] Amended: Links added.
[2022-07-21] MEDS: lactose-reduced food (Ensure Enlive) - 237ml bottle PO SCH ×2 (13:17→18:00)
[2022-07-21 22:20] VITALS: BP 148/73
[2022-07-22 06:00] VITALS: BP 144/49
--- NOTE | 2022-07-22 06:25 | NUR ---
Problems reprioritized. Patient report given, questions answered & plan of care reviewed with ALVINA Lopes.
[2022-07-22] MEDS: pantoprazole 40mg Tablet.DR PO SCH (07:30)
[2022-07-22] MEDS: lactose-reduced food (Ensure Enlive) - 237ml bottle PO SCH ×3 (08:00→18:01)
[2022-07-22] MEDS: heparin, porcine 5000 units/ml vial SQ SCH ×2 (08:00→20:44)
[2022-07-22] MEDS: K and/or MAG REPLACEMENT MC SCH ×3 (08:00→20:00)
[2022-07-22] MEDS: prazosin 1mg capsule PO SCH ×2 (10:06→20:44)
[2022-07-22] MEDS: levoTHYROXINE 25mcg tablet PO SCH (10:06)
[2022-07-22] MEDS: losartan 50mg tablet PO SCH (10:06)
[2022-07-22] MEDS: amLODIPine 5mg tablet PO SCH (10:07)
[2022-07-22] MEDS: docusate sod 100mg capsule PO SCH ×2 (10:07→20:44)
--- NOTE | 2022-07-22 11:00 | NUR ---
Pt refused 1100 vs.
[2022-07-22 15:00] VITALS: BP 107/47
[2022-07-22 18:00] VITALS: BP 130/47
[2022-07-22] MEDS ORDERED: dextrose 5%-normal saline 1,000 ML IV SCH (19:25)
[2022-07-22] MEDS ORDERED: potassium Cl 40MEQ/1/2NS 520ml 520 ML IV PRN ×2 (19:30)
[2022-07-22] MEDS ORDERED: magnesium 2GM in 50ml NS 50 ML IV PRN (19:30)
[2022-07-22] MEDS ORDERED: magnesium Cl slow-release 64mg tablet PO PRN (19:30)
[2022-07-22] MEDS ORDERED: magnesium 4gm in 100ml NS 100 ML IV PRN (19:30)
[2022-07-22] MEDS ORDERED: potassium Cl 20 mEq SR tablet PO PRN (19:30)
--- NOTE | 2022-07-23 00:14 | NUR ---
Pt. is awake alert confused as to place time and purpose talking on land phone with daughter states is waiting to go somewhere when daughter arrives. Spoke with daughter on the phone, no facility acceptance as of yet, will visit pt. tomorrow. Pt. feels family doesn't care would like to speak to friend Lewis. Charged up pt. cell phone she is unable to use high tech phone. Pt. able to feed self small amt of dinner and snack today. Able to take po meds and fluids more cooperative today. Up to BSC with two person assist.
[2022-07-23 06:00] VITALS: BP 144/67
--- NOTE | 2022-07-23 06:50 | NUR ---
Patient in room PCU 3027. I have received report from SOLE, RN, and had the opportunity to ask questions and assume patient care.PT RESTING COMFORTABLY, NO S/S OF DISTRESS. WILL COTINUE TO MONITOR.
[2022-07-23 07:34] LABS: BASOPHILS % (AUTO) 0.3 % (0-1); EOSINOPHILS # (AUTO) 0.3 X10'3 (0-0.9); EOSINOPHILS % (AUTO) 4.7 % (0-6); HEMATOCRIT 45.3 % (35.0-45.0); HEMOGLOBIN 15.3 g/dl (12.0-16.0); LYMPHOCYTES # (AUTO) 1.7 X10'3 (1.1-4.8); LYMPHOCYTES % (AUTO) 26.8 % (21-51); MEAN CORPUSCULAR HEMOGLOBIN 30.3 PG (27.0-31.0); MEAN CORPUSCULAR HGB CONC 33.8 g/dL (33.0-36.5); MEAN CORPUSCULAR VOLUME 89.6 FL (78-98); MEAN PLATELET VOLUME 9.7 FL (7.4-10.4); MONOCYTES # (AUTO) 0.7 X10'3 (0-0.9); MONOCYTES % (AUTO) 11.6 % (2-12); NEUTROPHILS # (AUTO) 3.5 X10'3 (1.8-7.7); NEUTROPHILS % (AUTO) 56.6 % (42-75); PLATELET COUNT 240 X10'3 (140-440); RED BLOOD COUNT 5.05 X10'6 (4.20-5.60); WHITE BLOOD COUNT 6.2 X10'3 (4.5-11.0)
[2022-07-23 07:47] LABS: ALANINE AMINOTRANSFERASE 31 U/L (12-78); ALBUMIN/GLOBULIN RATIO 0.9 (1.1-1.5); ALKALINE PHOSPHATASE 56 IU/L (46-116); ANION GAP 11 (8-16); ASPARTATE AMINO TRANSFERASE 26 U/L (10-37); BILIRUBIN,TOTAL 0.8 MG/DL (0.1-1.0); BLOOD UREA NITROGEN 14 MG/DL (7-18); BUN/CREATININE RATIO 14.9 (10.0-20.0); CALCIUM 9.9 MG/DL (8.5-10.1); CHLORIDE 104 MMOL/L (99-107); CREATININE 0.94 MG/DL (0.40-0.90); GLUCOSE 96 MG/DL (70-104); POTASSIUM 3.1 MMOL/L (3.5-5.1); SODIUM 142 MMOL/L (135-145); TOTAL CARBON DIOXIDE 26.9 MMOL/L (24-32); TOTAL PROTEIN 6.3 G/DL (6.4-8.2); eGFR 56 ML/MIN
[2022-07-23] MEDS: lactose-reduced food (Ensure Enlive) - 237ml bottle PO SCH ×3 (08:00→18:00)
[2022-07-23] MEDS: K and/or MAG REPLACEMENT MC SCH ×4 (08:00→20:00)
[2022-07-23] MEDS: docusate sod 100mg capsule PO SCH ×2 (10:02→20:39)
[2022-07-23] MEDS: potassium Cl 20 mEq SR tablet PO PRN ×3 (10:03→20:39)
[2022-07-23] MEDS: losartan 50mg tablet PO SCH (10:03)
[2022-07-23] MEDS: pantoprazole 40mg Tablet.DR PO SCH (10:03)
[2022-07-23] MEDS: amLODIPine 5mg tablet PO SCH (10:04)
[2022-07-23] MEDS: levoTHYROXINE 25mcg tablet PO SCH (10:04)
[2022-07-23] MEDS: prazosin 1mg capsule PO SCH ×2 (10:04→20:39)
[2022-07-23] MEDS: heparin, porcine 5000 units/ml vial SQ SCH ×2 (10:05→20:39)
[2022-07-23 10:28] VITALS: BP 135/51
[2022-07-23 14:31] VITALS: BP 132/51
[2022-07-23 18:00] VITALS: BP 121/40
--- NOTE | 2022-07-23 18:20 | NUR ---
Student documentation: I have reviewed and agree with all interventions, assessments performed and documented by ALVINA SOTO.Student Medication Administration: For this medication-pass time frame, all medication were reviewed, dispensed, administered and documented per hospital policy by ALVINA SOTO.
--- NOTE | 2022-07-23 18:21 | NUR ---
Problems reprioritized. Patient report given, questions answered & plan of care reviewed with SYL HAAS.
[2022-07-24] VITALS (9 sets, daily range): BP systolic 105–187; BP diastolic 52–74
--- NOTE | 2022-07-24 06:54 | NUR ---
Patient in room PCU 3027. I have received report from SYL MOTA, and had the opportunity to ask questions and assume patient care. PT RESTING COMFORTABLY, ASKED FOR BLANKET. BLANKET GIVEN AND PT RESTING. WILL CONTINUE TO MONITOR.
[2022-07-24 07:45] LABS: BASOPHILS # (AUTO) 0.1 X10'3 (0-0.2); BASOPHILS % (AUTO) 1.3 % (0-1); EOSINOPHILS # (AUTO) 0.5 X10'3 (0-0.9); EOSINOPHILS % (AUTO) 6.9 % (0-6); HEMATOCRIT 43.2 % (35.0-45.0); HEMOGLOBIN 14.7 g/dl (12.0-16.0); LYMPHOCYTES # (AUTO) 1.6 X10'3 (1.1-4.8); LYMPHOCYTES % (AUTO) 24.7 % (21-51); MEAN CORPUSCULAR HEMOGLOBIN 30.6 PG (27.0-31.0); MEAN CORPUSCULAR HGB CONC 34.1 g/dL (33.0-36.5); MEAN CORPUSCULAR VOLUME 89.9 FL (78-98); MEAN PLATELET VOLUME 9.4 FL (7.4-10.4); MONOCYTES # (AUTO) 0.7 X10'3 (0-0.9); MONOCYTES % (AUTO) 10.6 % (2-12); NEUTROPHILS # (AUTO) 3.7 X10'3 (1.8-7.7); NEUTROPHILS % (AUTO) 56.5 % (42-75); PLATELET COUNT 218 X10'3 (140-440); RED CELL DISTRIBUTION WIDTH 14.6 % (11.5-14.5); WHITE BLOOD COUNT 6.6 X10'3 (4.5-11.0)
[2022-07-24 08:00] LABS: ALANINE AMINOTRANSFERASE 27 U/L (12-78); ALBUMIN 2.8 G/DL (3.4-5.0); ALBUMIN/GLOBULIN RATIO 0.9 (1.1-1.5); ALKALINE PHOSPHATASE 52 IU/L (46-116); ANION GAP 9 (8-16); ASPARTATE AMINO TRANSFERASE 27 U/L (10-37); BILIRUBIN,TOTAL 0.6 MG/DL (0.1-1.0); BLOOD UREA NITROGEN 14 MG/DL (7-18); BUN/CREATININE RATIO 14.6 (10.0-20.0); CALCIUM 9.8 MG/DL (8.5-10.1); CHLORIDE 108 MMOL/L (99-107); CREATININE 0.96 MG/DL (0.40-0.90); GLUCOSE 94 MG/DL (70-104); MAGNESIUM 1.9 MG/DL (1.5-2.4); POTASSIUM 3.6 MMOL/L (3.5-5.1); SODIUM 143 MMOL/L (135-145); TOTAL PROTEIN 5.8 G/DL (6.4-8.2); eGFR 55 ML/MIN
[2022-07-24] MEDS: lactose-reduced food (Ensure Enlive) - 237ml bottle PO SCH ×3 (08:00→18:00)
[2022-07-24] MEDS: K and/or MAG REPLACEMENT MC SCH ×4 (08:00→19:44)
[2022-07-24] MEDS: losartan 50mg tablet PO SCH (09:24)
[2022-07-24] MEDS: prazosin 1mg capsule PO SCH ×2 (09:25→19:32)
[2022-07-24] MEDS: docusate sod 100mg capsule PO SCH ×2 (09:25→19:32)
[2022-07-24] MEDS: amLODIPine 5mg tablet PO SCH (09:26)
[2022-07-24] MEDS: pantoprazole 40mg Tablet.DR PO SCH (09:26)
[2022-07-24] MEDS: levoTHYROXINE 25mcg tablet PO SCH (09:26)
[2022-07-24] MEDS: heparin, porcine 5000 units/ml vial SQ SCH ×2 (09:27→19:33)
--- NOTE | 2022-07-24 09:35 | NUR ---
PT SOMNOLENT. NEGOTIATIONS FOR MEDICATIONS FOR WARM BLANKETS SUCCESSFUL. MINIMAL ASSESSMENT DONE. WILL COMPLETE LATER.
--- NOTE | 2022-07-24 13:14 | NUR ---
Problems reprioritized. Patient report given, questions answered & plan of care reviewed with SOLE, OFFICE MACHINE SERVICER APPRENTICE.
--- NOTE | 2022-07-24 16:02 | NUR ---
F/u 07/24: Pt PO remains poor occasional ~25% meal intake though mostly refusing meals and refusing Ensures advanced to regular diet per EMR not meeting needs. Now 12 days poor intake this admit; ALLI d/w SYL and gene CASTILLO regarding initiation of EN if within pt POC. LBM 07/19 receiving routine colace, likely impacted by poor PO trends. TF recs below in case to start. Will monitor for further nutrition intervention needs this admit. Recommendations: 1) Continue regular diet; continue assisting with meals 2) Chocolate Ensure Enlive TIDWM; encourage PO 3) IF TF to start via NG; Jevity 1.2 at 60ml/hr goal to provide 1440ml volume/day, 1728 kcals, 1162ml water, and 80g protein 4) IF TF; additional water flush 150ml Q4H, PALB Q / 5) Consider routine MVI supplementation given malnutrition status 6) Routine bowel care 7) Scaled weight this admit; subsequent weekly scaled weights Addendum: 07/24/22 at [address] Amended: Links added.
--- NOTE | 2022-07-24 23:53 | NUR ---
Report was given to Kalyn TINSLEY .Pt transferred with her belongings to rm 4010 ortho/neuro.vitals WML
--- NOTE | 2022-07-25 00:06 | NUR ---
Received report from Brinda TINSLEY, POC was discussed with all questions and concerns addressed at this time. Pt was transferred to [facility] bed without complications. Pt was turned for full skin check and change of chucks r/t incontinence episode of urine. Pt was educated on staff, use of call light and bed. Bed alarm is on for patient safety r/t pt likes to get up without assistance and is unsteady on her feet per PT notes. Call light within reach of patient. Will continue to monitor.
--- NOTE | 2022-07-25 01:00 | NUR ---
In agreement with previous nurse physical assessment unless otherwise charted.
[2022-07-25 04:10] LABS: ALANINE AMINOTRANSFERASE 21 U/L (12-78); ALBUMIN 2.7 G/DL (3.4-5.0); ALKALINE PHOSPHATASE 48 IU/L (46-116); ANION GAP 7 (8-16); ASPARTATE AMINO TRANSFERASE 20 U/L (10-37); BILIRUBIN,TOTAL 0.5 MG/DL (0.1-1.0); BLOOD UREA NITROGEN 15 MG/DL (7-18); BUN/CREATININE RATIO 13.6 (10.0-20.0); CALCIUM 9.5 MG/DL (8.5-10.1); CHLORIDE 107 MMOL/L (99-107); GLUCOSE 103 MG/DL (70-104); MAGNESIUM 1.8 MG/DL (1.5-2.4); POTASSIUM 3.4 MMOL/L (3.5-5.1); SODIUM 140 MMOL/L (135-145); TOTAL CARBON DIOXIDE 26.3 MMOL/L (24-32); TOTAL PROTEIN 5.5 G/DL (6.4-8.2); eGFR 47 ML/MIN
[2022-07-25 04:15] LABS: EOSINOPHILS # (AUTO) 0.4 X10'3 (0-0.9); HEMATOCRIT 40.3 % (35.0-45.0); HEMOGLOBIN 13.6 g/dl (12.0-16.0); LYMPHOCYTES # (AUTO) 1.9 X10'3 (1.1-4.8); MEAN CORPUSCULAR VOLUME 89.7 FL (78-98); MONOCYTES # (AUTO) 0.8 X10'3 (0-0.9); NEUTROPHILS # (AUTO) 4.6 X10'3 (1.8-7.7); NEUTROPHILS % (AUTO) 59.5 % (42-75)
[2022-07-25 04:17] LABS: BASOPHILS # (AUTO) 0.1 X10'3 (0-0.2); BASOPHILS % (AUTO) 0.8 % (0-1); EOSINOPHILS % (AUTO) 5.2 % (0-6); LYMPHOCYTES % (AUTO) 24.6 % (21-51); MEAN CORPUSCULAR HEMOGLOBIN 30.2 PG (27.0-31.0); MEAN CORPUSCULAR HGB CONC 33.7 g/dL (33.0-36.5); MEAN PLATELET VOLUME 9.6 FL (7.4-10.4); MONOCYTES % (AUTO) 9.9 % (2-12); PLATELET COUNT 231 X10'3 (140-440); RED BLOOD COUNT 4.49 X10'6 (4.20-5.60); RED CELL DISTRIBUTION WIDTH 14.4 % (11.5-14.5); WHITE BLOOD COUNT 7.7 X10'3 (4.5-11.0)
[2022-07-25 06:00] VITALS: BP 142/55
[2022-07-25] MEDS: magnesium hydroxide 30ml (MOM) UD suspension PO PRN (07:35)
[2022-07-25] MEDS: prazosin 1mg capsule PO SCH ×2 (07:38→20:01)
[2022-07-25] MEDS: levoTHYROXINE 25mcg tablet PO SCH (07:38)
[2022-07-25] MEDS: docusate sod 100mg capsule PO SCH ×2 (07:38→20:01)
[2022-07-25] MEDS: pantoprazole 40mg Tablet.DR PO SCH (07:38)
[2022-07-25] MEDS: amLODIPine 5mg tablet PO SCH (07:39)
[2022-07-25] MEDS: losartan 50mg tablet PO SCH (07:39)
[2022-07-25] MEDS: heparin, porcine 5000 units/ml vial SQ SCH ×2 (07:40→20:02)
[2022-07-25] MEDS: potassium Cl 20 mEq SR tablet PO PRN (07:41)
[2022-07-25] MEDS: K and/or MAG REPLACEMENT MC SCH ×3 (08:00→19:06)
[2022-07-25] MEDS: lactose-reduced food (Ensure Enlive) - 237ml bottle PO SCH ×3 (08:15→18:03)
[2022-07-25 10:00] VITALS: BP 151/49
--- NOTE | 2022-07-25 11:08 | NUR ---
PAGER ID: [phone] MESSAGE: [id number] Carly Mahan Please contact in regard to several concerns when able. Thank you. Denise [phone]
--- NOTE | 2022-07-25 14:06 | NUR ---
PAGER ID: [phone] MESSAGE: [id number] Carly Mahan MOM ineffective no BM for 6 days, poss UTI can we do UA?, poor PO fluid intake can we start fluids? berlin [phone]
[2022-07-25] MEDS ORDERED: bisacodyl 10mg suppository rectal RC PRN (14:20)
[2022-07-25] MEDS ORDERED: lactulose 20gm/30ml cup PO PRN (14:20)
[2022-07-25 16:58] LABS: CLARITY,URINE CLOUDY (Clear); COLOR,URINE YELLOW (Yellow); GLUCOSE, URINE NEGATIVE (Neg); KETONES,URINE NEGATIVE (Neg); LEUKOCYTE ESTERASE ,URINE LARGE (Neg); NITRITES, URINE NEGATIVE (Neg); OCCULT BLOOD,URINE NEGATIVE (Neg); PROTEIN,URINE NEGATIVE (Neg); UROBILINOGEN,URINE 0.2 E.U/dL (0.2-1.0)
[2022-07-25 17:14] LABS: UA COLLECTION TYPE STRAIGHT CATH
[2022-07-25 17:16] LABS: BACTERIA,URINE 4+ /HPF (Neg); RBC,URINE NONE SEEN /HPF (0-2); SQUAMOUS EPITHELIAL CELL,UR NONE SEEN /LPF (FEW); WBC,URINE 20-30 /HPF (0-4)
[2022-07-25 17:17] LABS: WBC CLUMPS,URINE MODERATE /HPF (NEGATIVE)
--- NOTE | 2022-07-25 17:34 | NUR ---
i have reviewed and agree with all charting and assessments charted by Denise ames.
[2022-07-25 18:00] VITALS: BP 143/70
--- NOTE | 2022-07-25 18:35 | NUR ---
Problems reprioritized. Patient report given, questions answered & plan of care reviewed with Kalyn TINSLEY.
[2022-07-25] MEDS: metoprolol tartrate 12.5mg (1/2 tablet) PO SCH (20:01)
[2022-07-25 22:00] VITALS: BP 135/63
[2022-07-25] MEDS: HYDROcodone/acetaminophen 5mg/325mg tablet PO PRN (22:09)
[2022-07-26] MEDS: dextrose 5%-1/4 normal saline 1,000 ML IV SCH ×4 (00:20→20:20)
--- NOTE | 2022-07-26 05:44 | NUR ---
[address] PIV as MD had placed an order for IV fluids on day shift. In report it was stated that multiple attempts were made but unable to gain IV access. Will report to dayshift about unsuccessful attempts on this shift as well.
[2022-07-26 05:59] LABS: BASOPHILS # (AUTO) 0.1 X10'3 (0-0.2); BASOPHILS % (AUTO) 0.9 % (0-1); EOSINOPHILS # (AUTO) 0.5 X10'3 (0-0.9); HEMATOCRIT 40.7 % (35.0-45.0); LYMPHOCYTES # (AUTO) 1.9 X10'3 (1.1-4.8); LYMPHOCYTES % (AUTO) 26.5 % (21-51); MEAN CORPUSCULAR HEMOGLOBIN 31.1 PG (27.0-31.0); MEAN CORPUSCULAR HGB CONC 34.5 g/dL (33.0-36.5); MEAN CORPUSCULAR VOLUME 90.1 FL (78-98); MEAN PLATELET VOLUME 9.3 FL (7.4-10.4); MONOCYTES # (AUTO) 0.7 X10'3 (0-0.9); MONOCYTES % (AUTO) 9.7 % (2-12); NEUTROPHILS % (AUTO) 55.9 % (42-75); PLATELET COUNT 238 X10'3 (140-440); RED BLOOD COUNT 4.51 X10'6 (4.20-5.60); WHITE BLOOD COUNT 7.1 X10'3 (4.5-11.0)
[2022-07-26 06:00] VITALS: BP 135/79
[2022-07-26 06:13] LABS: ALANINE AMINOTRANSFERASE 25 U/L (12-78); ALBUMIN 2.8 G/DL (3.4-5.0); ALBUMIN/GLOBULIN RATIO 0.9 (1.1-1.5); ALKALINE PHOSPHATASE 52 IU/L (46-116); ANION GAP 7 (8-16); ASPARTATE AMINO TRANSFERASE 26 U/L (10-37); BILIRUBIN,TOTAL 0.4 MG/DL (0.1-1.0); BLOOD UREA NITROGEN 14 MG/DL (7-18); BUN/CREATININE RATIO 13.5 (10.0-20.0); CALCIUM 9.8 MG/DL (8.5-10.1); CHLORIDE 109 MMOL/L (99-107); CREATININE 1.04 MG/DL (0.40-0.90); GLUCOSE 100 MG/DL (70-104); MAGNESIUM 2.1 MG/DL (1.5-2.4); POTASSIUM 3.9 MMOL/L (3.5-5.1); SODIUM 143 MMOL/L (135-145); TOTAL CARBON DIOXIDE 26.8 MMOL/L (24-32); TOTAL PROTEIN 5.8 G/DL (6.4-8.2); eGFR 50 ML/MIN
--- NOTE | 2022-07-26 06:15 | NUR ---
Patient in room ORTHO 4010. I have received report from Sanjana TINSLYE and had the opportunity to ask questions and assume patient care.
[2022-07-26] MEDS: lactose-reduced food (Ensure Enlive) - 237ml bottle PO SCH ×3 (08:00→18:04)
[2022-07-26] MEDS: K and/or MAG REPLACEMENT MC SCH ×2 (08:00→19:06)
[2022-07-26] MEDS: heparin, porcine 5000 units/ml vial SQ SCH ×2 (09:09→20:43)
[2022-07-26] MEDS: metoprolol tartrate 12.5mg (1/2 tablet) PO SCH ×2 (09:09→20:00)
[2022-07-26] MEDS: losartan 50mg tablet PO SCH (09:10)
[2022-07-26] MEDS: amLODIPine 5mg tablet PO SCH (09:10)
[2022-07-26] MEDS: prazosin 1mg capsule PO SCH ×2 (09:11→20:41)
[2022-07-26] MEDS: docusate sod 100mg capsule PO SCH ×2 (09:11→20:41)
[2022-07-26] MEDS: HYDROcodone/acetaminophen 5mg/325mg tablet PO PRN (09:12)
[2022-07-26] MEDS: pantoprazole 40mg Tablet.DR PO SCH (09:15)
[2022-07-26] MEDS: levoTHYROXINE 25mcg tablet PO SCH (09:17)
[2022-07-26 10:00] VITALS: BP 130/50
[2022-07-26] MEDS ORDERED: CefTRIAXone/D5W-Rocephin 1gm 50 ML IV ONE (12:35)
[2022-07-26 14:00] VITALS: BP 138/66
--- NOTE | 2022-07-26 15:00 | NUR ---
DRILLER AND REAMER documentation: I have reviewed and agree with all interventions, assessments performed and documented by Denise STREETER.
--- NOTE | 2022-07-26 15:00 | NUR ---
SYL Medication Administration: For this medication-pass time frame, all medication were reviewed, dispensed, administered and documented per hospital policy by Denise STREETER.
[2022-07-26 18:00] VITALS: BP 130/53
--- NOTE | 2022-07-26 18:30 | NUR ---
Problems reprioritized. Patient report given, questions answered & plan of care reviewed with Sanjana TINSLEY.
[2022-07-26 22:00] VITALS: BP 122/78
[2022-07-27] MEDS: dextrose 5%-1/4 normal saline 1,000 ML IV SCH ×2 (02:15→16:20)
[2022-07-27 06:00] VITALS: BP 141/60
--- NOTE | 2022-07-27 06:23 | NUR ---
Patient in room ORTHO 4010B. I have received report from Sanjana TINSLEY and had the opportunity to ask questions and assume patient care.
[2022-07-27] MEDS: K and/or MAG REPLACEMENT MC SCH ×2 (07:50→20:00)
[2022-07-27] MEDS: lactose-reduced food (Ensure Enlive) - 237ml bottle PO SCH ×3 (08:00→18:16)
[2022-07-27] MEDS: amLODIPine 5mg tablet PO SCH (08:55)
[2022-07-27] MEDS: docusate sod 100mg capsule PO SCH ×2 (08:57→20:57)
[2022-07-27] MEDS: heparin, porcine 5000 units/ml vial SQ SCH ×2 (08:57→20:59)
[2022-07-27] MEDS: pantoprazole 40mg Tablet.DR PO SCH (08:57)
[2022-07-27] MEDS: levoTHYROXINE 25mcg tablet PO SCH (08:57)
[2022-07-27] MEDS: prazosin 1mg capsule PO SCH ×2 (08:58→20:00)
[2022-07-27] MEDS: metoprolol tartrate 12.5mg (1/2 tablet) PO SCH ×2 (09:00→21:04)
[2022-07-27] MEDS: losartan 50mg tablet PO SCH (09:00)
[2022-07-27] MEDS: CefTRIAXone/D5W-Rocephin 1gm 50 ML IV SCH (09:23)
[2022-07-27 10:00] VITALS: BP 119/57
--- NOTE | 2022-07-27 12:14 | NUR ---
F/u 07/27: Pt PO remains poor 0-25% mostly refusing both meals and ONS despite assistance w/ meals now 15 days not meeting needs. Receiving D5/quarter NS at 100ml/hr providing 408 kcals/day per EMR. ALLI d/w regarding need for nutrition support, pending family discussion regarding POC at this time. Given now 15 days almost no nutrition intake now meets severe malnutrition criteria; notified. EN recs below in case to start. LBM 07/26 receiving routine colace. Will continue to follow. Recommendations: 1) Continue regular diet; continue assisting with meals 2) Chocolate Ensure Enlive TIDWM; encourage PO 3) IF TF to start via NG; Jevity 1.2 at 60ml/hr goal to provide 1440ml volume/day, 1728 kcals, 1162ml water, and 80g protein 4) IF TF; additional water flush 150ml Q4H, PALB Q / 5) IF pt appropriate and within POC to receive nutrition support may benefit from PEG to maintain long-term nutrition status 6) Consider routine MVI supplementation given malnutrition status 7) Routine bowel care 8) Scaled weight this admit; subsequent weekly scaled weights Addendum: 07/27/22 at [address] Amended: Links added.
--- NOTE | 2022-07-27 15:29 | NUR ---
PAGER ID: [phone] MESSAGE: [id number] Klever Mahan eating approx 25% meals, 1/2 supplements.
[2022-07-27 18:00] VITALS: BP 137/58
[2022-07-27 22:00] VITALS: BP 118/70
--- NOTE | 2022-07-27 22:45 | NUR ---
Student documentation: I have reviewed interventions, assessments performed and documented by Ghislaine BOLES [facility].
[2022-07-28] VITALS (7 sets, daily range): BP systolic 104–143; BP diastolic 41–95
--- NOTE | 2022-07-28 01:42 | NUR ---
Problems reprioritized. Patient report given, questions answered & plan of care reviewed with aniceto donaldson.
--- NOTE | 2022-07-28 01:47 | NUR ---
Assumed care of pts from Yasir TINSLEY.
[2022-07-28] MEDS: dextrose 5%-1/4 normal saline 1,000 ML IV SCH ×3 (05:05→23:41)
--- NOTE | 2022-07-28 06:00 | NUR ---
Patient in room ORTHO 4010. I have received report from ALVINA Cordero and had the opportunity to ask questions and assume patient care.
--- NOTE | 2022-07-28 06:17 | NUR ---
Report to Shantell TINSLEY.
[2022-07-28] MEDS: levoTHYROXINE 25mcg tablet PO SCH (06:44)
[2022-07-28] MEDS: pantoprazole 40mg Tablet.DR PO SCH (06:44)
[2022-07-28] MEDS: K and/or MAG REPLACEMENT MC SCH ×2 (08:00→20:00)
[2022-07-28] MEDS: heparin, porcine 5000 units/ml vial SQ SCH ×2 (08:06→20:00)
[2022-07-28] MEDS: prazosin 1mg capsule PO SCH ×2 (08:07→20:29)
[2022-07-28] MEDS: losartan 50mg tablet PO SCH (08:07)
[2022-07-28] MEDS: docusate sod 100mg capsule PO SCH ×2 (08:08→20:29)
[2022-07-28] MEDS: metoprolol tartrate 12.5mg (1/2 tablet) PO SCH ×2 (08:08→20:29)
[2022-07-28] MEDS: amLODIPine 5mg tablet PO SCH (08:08)
[2022-07-28] MEDS: CefTRIAXone/D5W-Rocephin 1gm 50 ML IV SCH (08:08)
[2022-07-28] MEDS: multivitamins, therapeutics tablet PO SCH (08:09)
[2022-07-28] MEDS: lactose-reduced food (Ensure Enlive) - 237ml bottle PO SCH ×3 (08:10→18:00)
--- NOTE | 2022-07-28 09:21 | NUR ---
Called and spoke with pt daughter about what patient likes to eat at home. Daughter states pt has poor nutrition at home and her diet mainly consisted of fritos corn chips, cold cereal with bananas, boneless chicken wings,broccoli and brussel sprouts. approved Primary RN to encourage daughter to bring in any outside food the patient might eat. Daughter states she will be by today to bring food and glasses
--- NOTE | 2022-07-28 18:15 | NUR ---
Patient in room ORTHO 4010. I have received report from ALVINA Morales and had the opportunity to ask questions and assume patient care.
--- NOTE | 2022-07-28 18:22 | NUR ---
Problems reprioritized. Patient report given, questions answered & plan of care reviewed with ALVINA Gruber.
[2022-07-29 06:00] VITALS: BP 125/72
--- NOTE | 2022-07-29 06:28 | NUR ---
Problems reprioritized. Patient report given, questions answered & plan of care reviewed with ALVINA Stinson.
[2022-07-29] MEDS: heparin, porcine 5000 units/ml vial SQ SCH (07:39)
[2022-07-29] MEDS: multivitamins, therapeutics tablet PO SCH (07:46)
[2022-07-29] MEDS: pantoprazole 40mg Tablet.DR PO SCH (07:47)
[2022-07-29] MEDS: metoprolol tartrate 12.5mg (1/2 tablet) PO SCH (07:48)
[2022-07-29] MEDS: docusate sod 100mg capsule PO SCH (07:49)
[2022-07-29] MEDS: levoTHYROXINE 25mcg tablet PO SCH (07:49)
[2022-07-29] MEDS: prazosin 1mg capsule PO SCH (07:51)
[2022-07-29] MEDS: amLODIPine 5mg tablet PO SCH (07:52)
[2022-07-29 08:00] VITALS: BP_SYST 125
[2022-07-29] MEDS: losartan 50mg tablet PO SCH (08:00)
[2022-07-29] MEDS: CefTRIAXone/D5W-Rocephin 1gm 50 ML IV SCH (08:00)
[2022-07-29 09:35] LABS: ALANINE AMINOTRANSFERASE 22 U/L (12-78); ALBUMIN 2.6 G/DL (3.4-5.0); ALBUMIN/GLOBULIN RATIO 0.9 (1.1-1.5); ALKALINE PHOSPHATASE 51 IU/L (46-116); ANION GAP 9 (8-16); ASPARTATE AMINO TRANSFERASE 21 U/L (10-37); BILIRUBIN,TOTAL 0.3 MG/DL (0.1-1.0); BLOOD UREA NITROGEN 10 MG/DL (7-18); BUN/CREATININE RATIO 11.5 (10.0-20.0); CALCIUM 9.4 MG/DL (8.5-10.1); CHLORIDE 108 MMOL/L (99-107); CREATININE 0.87 MG/DL (0.40-0.90); GLUCOSE 120 MG/DL (70-104); POTASSIUM 3.4 MMOL/L (3.5-5.1); SODIUM 143 MMOL/L (135-145); TOTAL CARBON DIOXIDE 26.3 MMOL/L (24-32); TOTAL PROTEIN 5.4 G/DL (6.4-8.2); eGFR 62 ML/MIN
[2022-07-29 09:58] LABS: BASOPHILS % (AUTO) 0.2 % (0-1); EOSINOPHILS # (AUTO) 0.4 X10'3 (0-0.9); EOSINOPHILS % (AUTO) 7.1 % (0-6); HEMATOCRIT 41.3 % (35.0-45.0); HEMOGLOBIN 14.1 g/dl (12.0-16.0); LYMPHOCYTES # (AUTO) 1.1 X10'3 (1.1-4.8); LYMPHOCYTES % (AUTO) 18.9 % (21-51); MEAN CORPUSCULAR HEMOGLOBIN 30.8 PG (27.0-31.0); MEAN CORPUSCULAR VOLUME 90.5 FL (78-98); MEAN PLATELET VOLUME 10.2 FL (7.4-10.4); MONOCYTES # (AUTO) 0.6 X10'3 (0-0.9); MONOCYTES % (AUTO) 10.2 % (2-12); NEUTROPHILS # (AUTO) 3.7 X10'3 (1.8-7.7); NEUTROPHILS % (AUTO) 63.6 % (42-75); PLATELET COUNT 217 X10'3 (140-440); RED BLOOD COUNT 4.56 X10'6 (4.20-5.60); RED CELL DISTRIBUTION WIDTH 15.2 % (11.5-14.5); WHITE BLOOD COUNT 5.9 X10'3 (4.5-11.0)
[2022-07-29] MEDS ORDERED: LEVO25TA7 PO (11:36)
[2022-07-29] MEDS ORDERED: LOSA50TA64 PO (11:36)
[2022-07-29] MEDS ORDERED: NOR5T PO (11:36)
[2022-07-29] MEDS ORDERED: PRAZ1CAP5 PO (11:36)
[2022-07-29] MEDS ORDERED: MULT-25 PO (11:36)
[2022-07-29] MEDS ORDERED: LOP12.5T PO (11:36)
[2022-07-29] MEDS ORDERED: LACT-237 PO (11:36)
--- NOTE | 2022-07-29 13:20 | NUR ---
Report given to Meeta Colon. SL removed and report given. Explanation given to patient and paperwork done.
--- NOTE | 2022-07-29 14:09 | NUR ---
Patient transferred to [facility] via medical transport. iv removed tip intact no complications. belongings sent with pt. Attempted to call daughter Arlene about pts wheelchair. Spoke with pts niece regarding pts wheelchair being here. habilitation worker texted patients daughter about wheelchair. Wheelchair will be down in social workers office.
== END 2022-07-29 14:00 | DRG 304 ==
LOC: ER 12:20 → ED HOLD 19:37 → EDBEDREQ 23:41 → EDBEDREQTM 23:45 → CICU 2S 07-13 00:38 → PCU 3S 07-14 07:00 → ORTHO 4S 07-24 23:48
PROVIDERS: ADMIT Internal Medicine; ATTEND Internal Medicine
PROC: 2W3SX1Z Immobilization of Right Foot using Splint (ICD-10-PCS; principal; 2022-07-24)
DX: I16.0 Hypertensive urgency (principal); E43 Unspecified severe protein-calorie malnutrition; N39.0 Urinary tract infection, site not specified; I95.1 Orthostatic hypotension; G30.9 Alzheimer's disease, unspecified; Z66 Do not resuscitate; K21.9 Gastro-esophageal reflux disease without esophagitis; B96.20 Unspecified Escherichia coli [E. coli] as the cause of diseases classified elsewhere; I10 Essential (primary) hypertension; Z60.2 Problems related to living alone; W18.39XA Other fall on same level, initial encounter; E87.6 Hypokalemia; S93.401A Sprain of unspecified ligament of right ankle, initial encounter; S00.83XA Contusion of other part of head, initial encounter; M25.571 Pain in right ankle and joints of right foot; E03.9 Hypothyroidism, unspecified; R63.0 Anorexia; F02.80 Dementia in other diseases classified elsewhere, unspecified severity, without behavioral disturbance, psychotic disturbance, mood disturbance, and anxiety; Z79.52 Long term (current) use of systemic steroids; Z68.28 Body mass index [BMI] 28.0-28.9, adult; Z88.5 Allergy status to narcotic agent; Z91.018 Allergy to other foods; Y93.89 Activity, other specified; Y92.098 Other place in other non-institutional residence as the place of occurrence of the external cause; Y99.8 Other external cause status; Z79.899 Other long term (current) drug therapy
CPT/HCPCS: 36415; 70450; 70551; 73610; 80053; 81001; 82550; 83735; 84443; 85025; 87077; 87081; 87088; 87186; 92508; 92616; 93005; 93306; 97110; 97116; 97161; 97530; 97535; 99285; A6212; A6258; G0378; J0696; J1644; J3480; J7030; J7040; J7042

== ENCOUNTER 2025-04-05 08:56 | Emergency (ER) | payer BC, MEDICAID ==
[~2025-04-05] VITALS: Ht 165.1 cm; Wt 65.5 kg
[~2025-04-05 08:56] MED LIST changes: -BIMA2.5D LEFTEYE; -BRIN10DR6 LEFTEYE; -HYDR12.55 PO; +LACT-237 PO; -LACT1CAP26 PO; +LEVO25TA7 PO; -LEVO75TA7 PO; +LOP12.5T PO; +LOSA50TA64 PO; +MULT-25 PO; +NOR5T PO; -OMEP20CA16 PO; +PRAZ1CAP5 PO; -VALS80TA32 PO
--- NOTE | 2025-04-05 10:13 | Physician Documentation ---
History of Present Illness ~ Chief Complaint: Mechanical Fall Stated Complaint: FALL Time Seen by MD: 10:01 Primary Medical Doctor: Carlos Source: patient Mode of Arrival: EMS Exam Limitations: clinical condition HPI 89-year-old female unwitnessed ground level fall at [facility] history of dementia A&O x2 at baseline patient has some neck pain but very poor historian. Patient was brought in by EMS to be evaluated due to unwitnessed fall Tetanus within 5 Years?: No (UNKNOWN) Medication Reconciliation Allergies: Coded Allergies: codeine (Verified Allergy, Unknown, 04/05/25) red dye (Unverified Allergy, Unknown, 04/05/25) Uncoded Allergies: RED FOODS (Allergy, Unknown, 02/04/21) Scheduled Amlodipine Besylate (Amlodipine Besylate), 10 MG PO DAILY Lactose-Reduced Food (Ensure Enlive), 1 CAN PO TIDWM Levothyroxine Sodium (Levothyroxine Sodium), 50 MCG PO DAILY@07 Losartan Potassium (Losartan Potassium), 100 MG PO DAILY Metoprolol Tartrate (Lopressor tablet), 12.5 MG PO BID Multivitamin with Folic Acid (Thera Tablet), 1 EACH PO DAILY Prazosin Hcl (Prazosin Hcl), 1 MG PO BID Past Medical History Past Medical History: Dementia, Hypertension, GERD, UTI, Hypothyroidism, *DERMATOLOGY* Alcohol Use: Rarely Drug Use: none Lives with: Alone Lives In: Home Review of Systems All Other Systems at this time: Reviewed and Negative Musculoskeletal: Reports: see HPI Physical Exam Vital Signs: RN Vital Signs have been reviewed: Yes, Heart Rate: 60, Respiratory Rate: 16, BP: 158/79, Pulse Oximetry: 96, Weight: 65.500 Oxygen Flow Rate: 0 Physical Exam General: Alert, no apparent distress. HEENT: moist mucous membranes. Normocephalic atraumatic no hematoma noted no pain with palpation of the scalp Neck: Full range of motion. Respiratory: No respiratory distress speaking in full sentences Chest: No accessory muscle use. Cardiovascular: Appears well perfused Extremities: Able to move shoulders elbows and wrists has some pain with her knees but no obvious deformity or bruising Spine: Some pain when lifting her head from her pillow no obvious deformities to the cervical spine but did say painful with palpation. Neurologic: Baseline oriented x2 Psychiatric: Normal mood and affect. Skin: Normal color, warm and dry. No edema, no ecchymosis. Progress Results/Orders Results/Orders Orders - LIAT JACOME NURSING SERVICE DIRECTOR Ct Cervical Spine (04/05/25 10:58) Ct Head (04/05/25 10:22) Completed Orders - LIAT JACOME NURSING SERVICE DIRECTOR Ct Cervical Spine (04/05/25 10:58) Ct Head (04/05/25 10:22) Vital Signs 04/05/25 09:01 Pulse 60 Resp 16 B/P (MAP) 158/79 Pulse Ox 96 O2 Flow Rate 0 EKG/XRAY/CT/US/VASC/MRI CT : Impression CT CT HEAD INDICATION: Fall COMPARISON: MRI HEAD on DOS: 07/15/22, CT HEAD on DOS: 07/12/22 TECHNIQUE: CT of the head without intravenous contrast. RADIATION DOSE: CTDIvol: 70 mGy, DLP: 2746 mGy*cm FINDINGS: There is no evidence of acute intracranial hemorrhage, extra-axial collection, mass effect, midline shift, herniation or hydrocephalus. The ventricles, sulci and cisterns are age appropriate. The carrington-white differentiation is intact. Chronic microvascular ischemic changes. The visualized paranasal sinuses and mastoid air cells are clear. The surrounding soft tissues and osseous structures are unremarkable. IMPRESSION: 1. No acute intracranial abnormality. Medical Decision Making Additional information obtaine: old records Findings Difficulty with dementia baseline altered mentation head and neck CT will be ordered to evaluate further. Patient has already been able to stand up and walk. Baseline history of weakness and frequent falls. Use were negative for any acute abnormalities. Patient was able to ambulate with the assistance which is baseline. Baseline dementia. Differential Dx:Considerations: Include: Closed head injury, Fracture(s), Spine injury, Abrasion(s), Contusion(s), Hematoma(s), Other Departure Time of Disposition: 11:58 Disposition: 01 HOME / SELF CARE / HOMELESS Impression: Primary Impression: Fall Condition: Stable Discharge Instructions: Fall Prevention in the Home, Adult, [id number] Additional Instructions: CT of head and neck were negative for any acute findings or fractures. Patient was able to ambulate and is ready to return to her facility with known baseline dementia and weakness. Referrals: NO PRIMARY CARE PROVIDER (PCP) Education Educated: Patient Educated regarding: diagnosis, treatment, need for follow up Signature Scribe Signature: No scribe Attestation: The note accurately reflects work and decisions made by me.Liat CORONADO 04/05/25 10:12 LIAT JACOME NP Apr 05, 2025 10:13
--- NOTE | 2025-04-05 11:11 | RADIOLOGY REPORT ---
CT CT HEAD INDICATION: Fall COMPARISON: MRI HEAD on DOS: 07/15/22, CT HEAD on DOS: 07/12/22 TECHNIQUE: CT of the head without intravenous contrast. RADIATION DOSE: CTDIvol: 70 mGy, DLP: 2746 mGy*cm FINDINGS: There is no evidence of acute intracranial hemorrhage, extra-axial collection, mass effect, midline shift, herniation or hydrocephalus. The ventricles, sulci and cisterns are age appropriate. The carrington-white differentiation is intact. Chronic microvascular ischemic changes. The visualized paranasal sinuses and mastoid air cells are clear. The surrounding soft tissues and osseous structures are unremarkable. IMPRESSION: 1. No acute intracranial abnormality.
--- NOTE | 2025-04-05 11:19 | RADIOLOGY REPORT ---
EXAM: CT CT CERVICAL SPINE INDICATION: Fall EXAM DATE: 04/05/2025 10:41 AM COMPARISON: None TECHNIQUE: Multiple axial CT images of the cervical spine were obtained using bone algorithm. Axial and coronal reformatting was done. Bone and soft tissue windows were reviewed. Radiation Dose Information: CT Dose: CTDI volume is 19 mGy. Dose-length product is 443 mGy*cm FINDINGS: The cervical alignment is intact. No acute cervical spine fracture is identified. The vertebral body heights are intact. No suspicious osseous lesions are identified. Moderate to severe degenerative changes throughout the cervical spine. There is no prevertebral soft tissue swelling. IMPRESSION: 1. No evidence of acute cervical spine fracture or traumatic malalignment. 2. All CT scans at this medical facility are performed using dose modulation techniques as appropriate to a performed exam including the following: Automated exposure control was utilized; adjustment of the MA and/or KV according to patient size; and use of iterative reconstruction technique.
[2025-04-05 13:55] VITALS: BP 129/78; PULSE 59; RESP 16; TEMP 98; O2SAT 96
== END 2025-04-05 13:57 | disposition home or self-care (01) ==
LOC: ER 08:57
DX: Z04.3 Encounter for examination and observation following other accident (principal); E03.9 Hypothyroidism, unspecified; I10 Essential (primary) hypertension; K21.9 Gastro-esophageal reflux disease without esophagitis; Z88.5 Allergy status to narcotic agent; Z87.440 Personal history of urinary (tract) infections; Z79.899 Other long term (current) drug therapy; Z60.2 Problems related to living alone; W18.30XA Fall on same level, unspecified, initial encounter; Y93.89 Activity, other specified; Y92.89 Other specified places as the place of occurrence of the external cause; Y99.8 Other external cause status
CPT/HCPCS: 70450; 72125; 99284